=== PATIENT | female | born 1985 | race Two or more races ===

== ENCOUNTER 2019-12-06 22:25 | Emergency (ER) | payer MEDICAID, SELFPAY ==
[2019-12-06 22:34] VITALS: BP 155/87; PULSE 123; RESP 30; TEMP -17.7; TEMP 0; O2SAT 100; BMI 47.7
--- NOTE | 2019-12-06 22:37 | XR_ITS ---
EXAMINATION: XR CHEST CLINICAL INFORMATION: Chest pain COMPARISON: None TECHNIQUE: Frontal view of the chest was obtained. FINDINGS: Cardiac leads overlie the chest. The lungs are well expanded. Bronchial wall thickening is present. There is no focal consolidation, edema, or effusion. No pneumothorax. The cardiomediastinal silhouette is within normal limits. No acute osseous abnormality. IMPRESSION: No dense consolidation. Bronchial wall thickening can be seen with a small airways process such as asthma or atypical/viral infection.
--- NOTE | 2019-12-06 22:38 | ED_ITS ---
HPI - Overdose General Chief Complaint: Overdose Stated Complaint: UNRESPONSIVE Time Seen by Provider: 12/06/19 22:34 History of Present Illness HPI Narrative: patient is a 34-year-old female with a history of cocaine and heroin abuse. Sent in by family because she became apneic. On nursing staff arrival patient stop breathing. Started to turn blue. A bag was applied Narcan was given immediately. Patient became awake alert. Patient has 3 small children in the back seat of her car. The children identified themselves as daughter and sons to the patient. patient's symptom has improved since. Has no specific complaint at this time. Used drugs for recreational reasons only Related Data Allergies Allergy/AdvReac Type Severity Reaction Status Date / Time No Known Allergies Allergy Verified 12/06/19 22:34 Review of Systems Review of Systems: patient refused to answer review of systems. FORMERLY [facility], [facility] Past Medical History Attestation statement: The following information was validated with the patient. Medical History Drug abuse and dependence Social History Social History Alcohol intake: never Smoking Status: Current every day smoker Use of substances other than those prescribed or required for medical reasons: Refusing to respond Substance Use Type: Other and Unknown Advance Directives: No Advance Directives Information Provided: No Physical Exam Vital Signs: Vital Signs: Vital Signs Temp Pulse Resp BP Pulse Ox 12/06/19 22:34 0 F L 123 H 30 H 155/87 H 100 Body Mass Index 47.7 Appearance: apneic, not responsive Eyes: pinpoint pupil, round and reactive to light. ENT: Pharynx normal. Neck: Normal inspection. Neck supple. No lymph nodes noted. No crepitus CVS: Normal heart rate and rhythm. Pulses normal. Normal S1 and S2 Respiratory no spontaneous respiration Abdomen: Soft and nontender. No rigidity. No distention. good BS x4 Skin: Skin warm and dry. Normal skin color. Normal skin turgor. Extremities: No lower extremity edema. Neurovascular intact to all extremities. No Lacerations. No Rash Neuro: unresponsive MDM - Overdose MDM Narrative Medical decision making narrative: patient became apneic cyanotic. Given Narcan by nursing staff. Woke up. Patient did drugs for recreational reasons. family stated patient uses heroin and cocaine. DCF will be contacted as patient had 3 small children. Currently awake alert no distress at this point. O2 sats 100% on room air. Will get chest x-ray as patient received CPR when she was apnea. patient monitored in the emergency department for about 2 hours still awake alert no distress. [facility] case filed. Patient chest x-ray showed no fracture no aspiration. Will discharge patient home as patient's O2 sats 100%. Patient told to stop using narcotics as it may kill her next time. Differential Diagnosis Differential diagnosis: Likely poisoning by opiate or related narcotic Discharge Plan Discharge Clinical Impression: Drug overdose, Opioid overdose Patient Disposition: Home, Self-Care Instructions: Cocaine Abuse (ED), Opioid Use Disorder (ED) Additional Instructions: Please stop using heroin. Using heroin can kill you. Your almost today. Please go to detox. He have small children at home using heroin can be extremely dangerous for you and for your kids. You might not be able to see them again. Referrals: Physician,Unknown [Primary Care Provider] - 2 days
--- NOTE | 2019-12-06 23:44 | PC.NURSE ---
took pills prescribed to her sister to help her relax. ?seroquel and does not know other one.
[2019-12-07] VITALS: BP 113/74; PULSE 76; RESP 16
[2019-12-07 00:23] LABS: Amphetamine Screen Urine Not Detected (Not Detect); Barbiturates, Urine Not Detected (Not Detect); Benzodiazepines Screen Urine Not Detected (Not Detect); Cannabinoid Screen Urine Not Detected (Not Detect); Cocaine Screen Urine POSITIVE (Not Detect); Opiate Screen Urine POSITIVE (Not Detect); Phencyclidine Screen Urine Not Detected (Not Detect)
--- NOTE | 2019-12-07 00:41 | PC.NURSE ---
spoke with patient regarding discharge. explained that her kids had to see her get CPR today because she overdosed. project account manager present. Made aware of [facility].
--- NOTE | 2019-12-07 01:22 | PC.NURSE ---
DCF at bedside.
--- NOTE | 2019-12-07 02:12 | MHC.CARE ---
Late entry: 49A report filed by this commercial lines underwriter phone and online with [facility]'s [id number] hotline at 11pm. Emergency response was called and [facility] arrived at 1am. Children were interviewed and taken into protective custody.
[2019-12-07 02:31] VITALS: BP 131/69; PULSE 108; RESP 20; O2SAT 98
--- NOTE | 2019-12-07 03:08 | PC.NURSE ---
UP TO BATHROOM. STEADY GAIT
== END 2019-12-07 04:00 | disposition home or self-care (01) ==
PROVIDERS: Nurse Practitioner Family; Emergency Provider Emergency Medicine Emergency Medical Services
DX: T40.2X1A Poisoning by other opioids, accidental (unintentional), initial encounter (principal); R40.4 Transient alteration of awareness; Y92.810 Car as the place of occurrence of the external cause; F14.10 Cocaine abuse, uncomplicated; F11.10 Opioid abuse, uncomplicated; F17.200 Nicotine dependence, unspecified, uncomplicated
CPT/HCPCS: 71045; 80307; 99283; 99284

== ENCOUNTER 2021-01-02 10:21 | Outpatient (REF) | payer OTHER, SELFPAY | END 2021-01-02 10:22 | disposition home or self-care (01) | LOC: HO.LAB 10:21 | PROVIDERS: Visit Provider Internal Medicine | DX: Z20.822 Contact with and (suspected) exposure to COVID-19 (principal) | CPT/HCPCS: C9803; U0003; U0005 ==

== ENCOUNTER 2021-01-12 11:00 | Outpatient (REF) | payer OTHER, SELFPAY | END 2021-01-12 11:01 | disposition home or self-care (01) | LOC: HO.LAB 11:00 | PROVIDERS: Visit Provider Internal Medicine | DX: Z20.822 Contact with and (suspected) exposure to COVID-19 (principal) | CPT/HCPCS: C9803; U0003; U0005 ==

== ENCOUNTER 2022-11-05 09:43 | Outpatient (REF) | payer MEDICAID, SELFPAY ==
[2022-11-05 14:24] LABS: MANUAL DIFF FLAG NO
[2022-11-05 14:34] LABS: Basophils Percent Auto 0.5 % (0-2); Eosinophils Absolute Auto 0.1 X10*3/uL (0.0-0.4); Eosinophils Percent Auto 1.5 % (0-4); Hematocrit 38.6 % (37.0-47.0); Imm Gran Abs Auto 0.03 X10*3/uL (0.00-0.03); Imm Gran Pct Auto 0.5 % (0.0-0.4); Lymphocytes Absolute Auto 1.8 X10*3/uL (1.2-4.9); Lymphocytes Percent Auto 30.2 % (20-40); Mean Corpuscular HGB Conc 31.1 g/dl (31.0-35.0); Mean Corpuscular Hemoglobin 25.5 pg (27.0-33.0); Mean Platelet Volume 11.6 fL (9.4-12.3); Monocytes Absolute Auto 0.4 X10*3/uL (0.1-1.2); Monocytes Percent Auto 7.2 % (2-11); Neutrophils Absolute Auto 3.6 x10*3/uL (2.0-8.3); Neutrophils Percent Auto 60.1 % (45-73); Platelet Count 333 X10*3/uL (160-400); Red Blood Count 4.71 X10*6/uL (4.20-5.50); Red Cell Distribution Width 15.3 % (11.0-16.0)
[2022-11-05 14:50] LABS: Iron 24 mcg/dL (30-160); Percent Iron Saturation 8 % (15-50); Total Iron Binding Capacity 314 mcg/dL (228-428); Unsaturated Iron Binding 290 ug/dL
== END 2022-11-05 09:44 | disposition home or self-care (01) ==
LOC: HO.CHCLDS 09:43
PROVIDERS: Visit Provider Internal Medicine
DX: D50.8 Other iron deficiency anemias (principal)
CPT/HCPCS: 36415; 83540; 85025

== ENCOUNTER 2023-09-12 10:44 | Outpatient (REF) | payer MEDICAID, SELFPAY | END 2023-09-12 10:45 | disposition home or self-care (01) | LOC: HO.HHCLNP 10:44 | PROVIDERS: Visit Provider Internal Medicine | DX: R30.0 Dysuria (principal) | CPT/HCPCS: 87086 ==

== ENCOUNTER 2023-11-18 09:34 | Outpatient (REF) | payer MEDICAID, SELFPAY ==
[2023-11-18 11:31] LABS: MANUAL DIFF FLAG NO
[2023-11-18 11:36] LABS: Basophils Percent Auto 0.4 % (0-2); Eosinophils Absolute Auto 0.1 X10*3/uL (0.0-0.4); Eosinophils Percent Auto 1.1 % (0-4); Hematocrit 39.5 % (37.0-47.0); Hemoglobin 12.7 g/dl (12.0-16.0); Imm Gran Abs Auto 0.05 X10*3/uL (0.00-0.03); Imm Gran Pct Auto 0.7 % (0.0-0.4); Lymphocytes Absolute Auto 1.9 X10*3/uL (1.2-4.9); Lymphocytes Percent Auto 24.9 % (20-40); Mean Corpuscular HGB Conc 32.2 g/dl (31.0-35.0); Mean Corpuscular Hemoglobin 26.7 pg (27.0-33.0); Mean Corpuscular Volume 83.2 fL (80.0-98.0); Mean Platelet Volume 10.9 fL (9.4-12.3); Monocytes Absolute Auto 0.6 X10*3/uL (0.1-1.2); Neutrophils Absolute Auto 4.9 x10*3/uL (2.0-8.3); Neutrophils Percent Auto 64.9 % (45-73); Platelet Count 359 X10*3/uL (160-400); Red Blood Count 4.75 X10*6/uL (4.20-5.50); Retic HGB Equivalent 28.6 pg (30.0-35.0); Reticulocyte Percent 1.9 % (0.5-1.8); Reticulocytes Absolute 0.092 X10*6/uL (0.026-0.095); White Blood Count 7.5 X10*3/uL (4.8-10.8)
[2023-11-18 11:57] LABS: Anion Gap 12 (12-20); Blood Urea Nitrogen 10 mg/dL (9-16); Calcium 9.8 mg/dL (8.4-10.2); Carbon Dioxide 24 mmol/L (22-29); Chloride 105 mmol/L (96-108); Cholesterol 174 mg/dL (<200); Estimated Glomerular Filt Rate > 60; Glucose Random 108 mg/dL (60-115); HDL Cholesterol 48 mg/dL (>40); Iron 29 mcg/dL (30-160); LDL Cholesterol Calculated 102 mg/dL (<100); Percent Iron Saturation 9 % (15-50); Potassium 4.4 mmol/L (3.3-5.1); Sodium 137 mmol/L (135-145); Total Iron Binding Capacity 322 mcg/dL (228-428); Triglycerides 122 mg/dL (<150); Unsaturated Iron Binding 293 ug/dL
[2023-11-18 12:15] LABS: Ferritin 13 ng/mL (10-250)
== END 2023-11-18 09:35 | disposition home or self-care (01) ==
LOC: HO.HHCL 09:34
PROVIDERS: Visit Provider Family Medicine
DX: I10 Essential (primary) hypertension (principal); D50.9 Iron deficiency anemia, unspecified
CPT/HCPCS: 36415; 80048; 80061; 82728; 83540; 85025; 85045